=== PATIENT | male | born 1960 | race Caucasian/White ===

== ENCOUNTER 2018-10-22 12:18 | Emergency (ER) | payer OTHER ==
[~2018-10-22] VITALS: Ht 195.6 cm; Wt 136.1 kg
[2018-10-22 12:34] VITALS: BP 131/89
== END 2018-10-22 13:43 | disposition home or self-care (01) ==
LOC: EDBD 12:18 → ER 12:18
DX: S00.03XA Contusion of scalp, initial encounter (principal); E11.9 Type 2 diabetes mellitus without complications; E78.5 Hyperlipidemia, unspecified; I10 Essential (primary) hypertension; W22.8XXA Striking against or struck by other objects, initial encounter; Y93.89 Activity, other specified; Y99.8 Other external cause status; Y92.89 Other specified places as the place of occurrence of the external cause
CPT/HCPCS: 70450